=== PATIENT | female | born 1985 | race Caucasian/White ===

== ENCOUNTER 2022-01-30 11:29 | Emergency (ER) | payer SELFPAY ==
[~2022-01-30] VITALS: Ht 154.9 cm; Wt 91.0 kg
[2022-01-30 11:42] VITALS: BP 128/73
[2022-01-30] MEDS ORDERED: IBUPROFEN 600MG TABLET PO ONE ×2 (12:30)
[2022-01-30] MEDS ORDERED: IBUP-2028 MT (13:51)
== END 2022-01-30 14:02 | disposition home or self-care (01) ==
LOC: ER 11:29
DX: S82.892A Other fracture of left lower leg, initial encounter for closed fracture (principal); S93.492A Sprain of other ligament of left ankle, initial encounter; Z90.49 Acquired absence of other specified parts of digestive tract; W01.0XXA Fall on same level from slipping, tripping and stumbling without subsequent striking against object, initial encounter; Y93.89 Activity, other specified; Y92.018 Other place in single-family (private) house as the place of occurrence of the external cause
CPT/HCPCS: 29515; 73610; 99283